=== PATIENT | male | born 1985 | race Caucasian/White ===

== ENCOUNTER 2017-05-18 14:54 | Emergency (ER) | payer SELFPAY ==
[~2017-05-18] VITALS: Ht 188 cm; Wt 81.7 kg
[2017-05-18] MEDS ORDERED: CALMOSEPTINE O3.5 GM TOP (15:19)
[2017-05-18] MEDS ORDERED: ZOVIRAX400 MG PO (15:42)
== END 2017-05-18 15:58 | disposition home or self-care (01) ==
LOC: ED 14:54
DX: A60.00 Herpesviral infection of urogenital system, unspecified (principal); F32.9 Major depressive disorder, single episode, unspecified; F17.200 Nicotine dependence, unspecified, uncomplicated; Z88.0 Allergy status to penicillin
CPT/HCPCS: 99283